=== PATIENT | male | born 1965 | race Caucasian/White ===

== ENCOUNTER 2018-08-21 05:59 | Day surgery (SDC) | payer MEDICAID ==
[~2018-08-21] VITALS: Ht 162.6 cm; Wt 63.5 kg
[2018-08-21] MEDS ORDERED: LIDOCAINE 2% 100 MG/5 ML UJET TP ONE (08:58)
[2018-08-21] MEDS ORDERED: KETOROLAC 30 MG/ML VIAL ONE (08:58)
== END 2018-08-21 09:57 | disposition home or self-care (01) ==
LOC: MDS 05:59 → MMU 06:00 → MDS 09:57
PROVIDERS: ATTEND Internal Medicine Gastroenterology
DX: D12.3 Benign neoplasm of transverse colon (principal); K63.5 Polyp of colon; K64.8 Other hemorrhoids; I10 Essential (primary) hypertension; E11.9 Type 2 diabetes mellitus without complications; Z79.84 Long term (current) use of oral hypoglycemic drugs; Z79.899 Other long term (current) drug therapy; Z72.89 Other problems related to lifestyle; Z87.891 Personal history of nicotine dependence
CPT/HCPCS: 45385; 82948; 88305; J1885